=== PATIENT | male | born 1975 | race Caucasian/White ===

== ENCOUNTER 2024-12-18 10:17 | Emergency (ER) | payer OTHER, SELFPAY ==
[2024-12-18 10:43] LABS: Hematocrit 43.3 % (39.0-52.0); Hemoglobin 14.8 g/dL (13.0-18.0); Mean Corp Hgb Conc. 34.2 g/dL (33.0-37.0); Mean Corpuscular Volume 86.1 fL (80.0-94.0); Nucleated Red Blood Cells % 0 % (-); Platelet Count 245 10^3/uL (130-400); Red Cell Dist. Width 12.6 % (11.5-14.5)
[2024-12-18 10:45] VITALS: BP 145/90
[2024-12-18 11:00] VITALS: BP 110/90
--- NOTE | 2024-12-18 11:18 | ED.GENMED ---
History of Present Illness
General
Chief Complaint: Rectal Bleeding
Source: patient and police
Exam Limitations: none
Time Seen by Provider: 12/18/24 10:30
Nursing documentation reviewed up to this point in time: agreed with
History of Present Illness
History of Present Illness:
49-year-old male with no reported chronic medical issues presents to the ER in police custody for assessment of rectal bleeding. Patient reports that intermittently for 'a long time' he has had bright red blood per rectum with bowel movements. He
says that he has noticed a bit more over the past 3 days. He denies any abdominal pain. He denies any nausea or vomiting. He denies any other acute complaints. He does not take any blood thinners or any other medications. He says he has never
had a colonoscopy before and does not typically follow with a doctor.
Review of Systems
Review of Systems
All Other Systems: ROS reviewed and negative except as documented in HPI and ROS
Respiratory: Denies trouble breathing
Cardiac: Denies chest pain or syncope
ABD/GI: Reports bloody stools; Denies abdominal pain, nausea, vomiting or diarrhea
: Denies flank pain
Musculoskeletal: Denies neck pain or back pain
Neurological: Denies headache
Phy Exam
Physical Exam
Physical Exam:
General: Awake, alert, oriented x3; no acute distress
Head: Normocephalic, atraumatic
Eyes: Conjunctiva normal
Throat: Airway intact, handling secretions
Neck: Trachea midline, supple without meningismus
Lungs: Breathing comfortably no distress
Heart: Regular rate
Abd: Soft, non distended, nontender to deep palpation
Rectal: Patient has both external and internal hemorrhoids on exam, no rectal masses, no blood noted on rectal examination
Neuro: No gross deficits
Skin: Warm and dry
Extremities: Warm and well-perfused
Scores
Heart Failure Risk
Heart Failure Risk Score: Not Applicable
Heart Score for Chest Pain Patients
STEMI patient?: Not applicable
Withdrawal Assessment of Alcohol
Withdrawal Assessment Completed?: Not applicable
Course
Orders/Labs/Results
Orders:
Orders
12/18/24 10:25
EKG [Electrocardiogram (*1)] Urgent
Reason for Study: Chest Pain
EKG- Treatment ONCE
12/18/24 10:27
Type+Screen Urgent
Complete Blood Count/With Diff Urgent
Comprehensive Metabolic Panel Urgent
12/18/24 10:49
ABO2 Urgent
BBK Wristband Number:
Associate notified that ABO2 has been ordered: [id number]
Date: 12/18/24
Time: 10:43
Wiring Technician ID: [id number]
Abnormal Lab Results
12/18/24
10:27
Absolute Lymphs (auto) 1.1 L 10^3/uL
(1.2-3.4)
Neutrophils % 76.6 H %
(42.2-75.2)
Lymphocytes % 16.0 L %
(20.5-51.1)
12/18/24 10:27
Vital Signs
Initial and Last Documented VS:
Initial Vital Signs
Temp Pulse Resp Pulse Ox
36.6 C 72 18 99
12/18/24 10:20 12/18/24 10:20 12/18/24 10:20 12/18/24 10:20
Last Documented Vital Signs
Temp Pulse Resp BP Pulse Ox
36.6 C 72 18 145/90 99
12/18/24 10:20 12/18/24 10:20 12/18/24 10:20 12/18/24 10:45 12/18/24 10:44
MDM/Problems Addressed
Differential Diagnosis Includes:
Hemorrhoids, diverticular bleed, AVM, polyp, cancer, etc
MDM/Problems Addressed:
49-year-old male presents for evaluation of intermittent rectal bleeding as described above. He has both internal and external hemorrhoids on exam today. He has no active bleeding noted today. His vitals are normal. His hemoglobin is normal.
Suspect that this is likely hemorrhoidal bleed but he does have reported family history of colon cancer and should have routine screening for this. Referred to colorectal surgery post for further treatment of his hemorrhoids as well as for routine
colonoscopy. Will prescribe topical hemorrhoid cream. Stable for discharge into police custody.
*Pulse Oximetry
SaO2: 99
Oxygen Mode of Delivery: Room air
Patient hypoxic: no (99%)
*Critical Care Note
Total Time (30-74mins, 75-104mins- exclusive of procedures): Not Applicable
Data Reviewed
Source: patient and police
ED Attending Note
-
Portions of this chart may have been created with voice recognition software.� Occasional wrong word or��sound alike� substitutions may have occurred due to the inherent limitations of voice recognition software.
Discharge Plan
Departure
Patient Disposition: Home (Routine Discharge)
Date of Disposition: 12/18/24
Time of Disposition: 11:05
Patient with high blood pressure during this ER visit?: Yes
Discharge Problem:
Hemorrhoids
Instructions: Hemorrhoids - ED discharge instructions
Prescriptions:
New
hydrocortisone-pramoxine 1-1 % foam
1 applic TN BID PRN (Reason: hemorrhoids) Qty: 10 0RF
Referrals:
Albin Nolan MD [Active, ColoRectal] - Next open appointment
Referral Note: Colorectal specialist
Activity Restrictions/Additional Instructions:
PATIENT IS MEDICALLY STABLE FOR INCARCERATION.
You were seen in the emergency room for rectal bleeding. You are found to have hemorrhoids. Your blood work fortunately showed no significant amounts of blood loss systemically. You are prescribed medication to apply to help shrink your
hemorrhoids. You should also increase your dietary fiber intake to keep your stools soft and regular to avoid exacerbating hemorrhoids. You should follow-up with the colorectal specialist at the next available appointment.
Thank you for visiting the Emergency Department at [facility].
1. Please schedule a follow up appointment as directed. Call first thing tomorrow morning to make an appointment.
2. If indicated, please take your medications as instructed and indicated on discharge paperwork.
3. If any of your symptoms do not improve, or persist, or become more severe within 6-12 hours, please return to the emergency department for further care.
4. Please return to the emergency department if you develop a headache, neck pain/stiffness, fever greater than 100.4F, chest pain, shortness of breath, persistent nausea, vomiting, slurred speech, difficulty walking, numbness/tingling, weakness,
signs of infection or any other symptoms that are worrisome to you.
Please call [phone] if you have any questions.
Discharge Date and Time
Print Language: SURINAMESE
[2024-12-18 11:24] LABS: ALT (SGPT) 23 U/L (0-50); AST (SGOT) 17 U/L (17-59); Albumin 4.4 g/dl (3.5-5.0); Alkaline Phosphatase 69 U/L (38-126); Blood Urea Nitrogen 14 mg/dl (9-20); Calcium 8.8 mg/dl (8.4-10.2); Carbon Dioxide 29 mmol/L (22-30); Chloride 108 mmol/L (98-107); Estimated Creatinine Clearance > 125 ml/min; Glucose 97 mg/dl (70-99); Potassium 4.4 mmol/L (3.5-5.1); Sodium 140 mmol/L (135-145); Total Protein 6.8 g/dl (6.3-8.2); eGFR > 60.00
== END 2024-12-18 12:03 | disposition home or self-care (01) ==
LOC: EMR 10:17
PROVIDERS: EMERGENCY PHYSICIAN Emergency Medicine; PRIMARYCARE PHYSICIAN Family Medicine
DX: K62.5 Hemorrhage of anus and rectum (principal); K64.4 Residual hemorrhoidal skin tags; K64.8 Other hemorrhoids; R03.0 Elevated blood-pressure reading, without diagnosis of hypertension; Z80.0 Family history of malignant neoplasm of digestive organs
CPT/HCPCS: 99283; 80053; 85025; 86850; 86900; 86901; 93005